=== PATIENT | male | born 1955 | race Caucasian/White ===

== ENCOUNTER 2016-11-17 12:22 | Emergency (ER) | payer OTHER ==
--- NOTE | 2016-11-17 13:12 | UC ---
Ear Complaint HPI - HPI Summary HPI Summary: 61 YEAR OLD MALE PRESENTS WITH RIGHT EAR PAIN/FULLNESS. - History of Current Complaint Chief Complaint: UCEar Stated Complaint: EAR PAIN Time Seen by Provider: 11/17/16 13:12 Hx Obtained From: Patient Onset/Duration: Gradual Onset Severity Initially: Moderate Severity Currently: Moderate Pain Scale Used: 0-10 Numeric - 6 - Allergies/Home Medications Allergies/Adverse Reactions: Allergies Allergy/AdvReac Type Severity Reaction Status Date / Time No Known Allergies Allergy Verified 11/17/16 12:51 Home Medications: Home Medications Ibuprofen [Advil] 600 mg PO Q6H PRN 11/17/16 [History Confirmed 11/17/16] PMH/Surg Hx/FS Hx/Imm Hx - Surgical History Surgical History: Yes Surgery Procedure, Year, and Place: hernia, and rtc repair bilateral shoulders - Social History Alcohol Use: Occasionally Substance Use Type: None Smoking Status (MU): Never Smoked Tobacco Review of Systems Constitutional: Negative Skin: Negative Eyes: Negative ENT: Ear Ache - RIGHT EAR FULLNESS/PAIN Respiratory: Negative Cardiovascular: Negative Gastrointestinal: Negative Genitourinary: Negative Motor: Negative Neurovascular: Negative Musculoskeletal: Negative Neurological: Negative Psychological: Negative All Other Systems Reviewed And Are Negative: Yes Physical Exam Triage Information Reviewed: Yes Appearance: Well-Appearing Vital Signs: Initial Vital Signs Temp 37.0 C 11/17/16 12:52 Pulse 66 11/17/16 12:52 Resp 14 11/17/16 12:52 BP 143/105 11/17/16 12:52 Pulse Ox 97 11/17/16 12:52 Vital Signs Reviewed: Yes Eye Exam: Normal ENT: Positive: Other: - RIGHT EAR CERUMEN IMPACTION. Dental Exam: Normal Neck exam: Normal Neck: Positive: 1 Respiratory Exam: Normal Cardiovascular Exam: Normal Abdominal Exam: Normal Musculoskeletal Exam: Normal Neurological Exam: Normal Psychological Exam: Normal Skin Exam: Normal Ear Complaint Course/Dx - Differential Dx/Diagnosis Provider Diagnoses: RIGHT EAR CERUMEN IMPACTION Discharge - Discharge Plan Condition: Stable Disposition: HOME Prescriptions: Amoxicillin PO (*) [Amoxicillin 875 MG (*)] 875 mg PO BID #14 tab Neomyc/Polym/HC 1% OTIC SUSP* [Cortisporin Otic Susp 1%*] 4 drop RIGHT EAR QID # 1 btl Referrals: Harris Quinteros MD [Medical Doctor] - No Primary Care Phys,NOPCP [Primary Care Provider] -
[2016-11-17] MEDS ORDERED: Carbamide Peroxide 6.5% OTIC* 15 ML BTL RIGHT EAR ONE (13:35)
[2016-11-17] MEDS ORDERED: Docusate LIQ* 100 MG/10 ML UDC ONE (13:48)
[2016-11-17] MEDS: Docusate LIQ* 100 MG/10 ML UDC PO ONE (13:58)
[2016-11-17 14:07] VITALS: BP 148/91
== END 2016-11-17 14:07 | disposition home or self-care (01) ==
LOC: UCCORT 12:22
DX: H61.21 Impacted cerumen, right ear (principal)
CPT/HCPCS: 99212; A9270-GY; G0463